=== PATIENT | male | born 1950 | race Caucasian/White ===

== ENCOUNTER → 2019-10-31 | Outpatient (CLI) | payer OTHER ==
[~2019-10-31] MED LIST: ALLO100T30 PO; ALLO300T PO; METO25TA35 PO; RIVA20TA PO; fenofibrate PO
[2019-10-31 16:57] LABS: BASOPHILS # (AUTO) 0.02 x10^3/uL (0-0.1); BASOPHILS % (AUTO) 0 % (0-1); EOSINOPHILS # (AUTO) 0.16 x10^3/uL (0-0.4); EOSINOPHILS % (AUTO) 2 % (1-7); LYMPHOCYTES # (AUTO) 2.73 x10^3/uL (1-3.4); LYMPHOCYTES % (AUTO) 36 % (22-44); MD NO; MEAN CORPUSCULAR HEMOGLOBIN 32.1 pg (27.5-34.5); MEAN CORPUSCULAR HGB CONC 33.1 g/dL (33.2-36.2); MONOCYTES % (AUTO) 8 % (2-9); NEUTROPHILS # (AUTO) 3.98 x10^3/uL (1.8-6.8); NEUTROPHILS % (AUTO) 53 % (42-75); PLATELET COUNT 123 x10^3/uL (130-400); RED BLOOD COUNT 5.31 x10^6/uL (4.38-5.82); RED CELL DISTRIBUTION WIDTH 14.8 % (9.4-14.8)
[2019-10-31 17:10] LABS: ALBUMIN 3.7 g/dL (3.4-5.0); ANION GAP 7 mmol/L (5-15); CALCIUM 9.4 mg/dL (8.5-10.1); CHLORIDE 109 mmol/L (98-107)
[2019-10-31 17:13] LABS: CREATININE 1.24 mg/dL (0.7-1.3)
[2019-10-31 17:14] LABS: ALANINE AMINOTRANSFERASE 60 U/L (12-78); ALKALINE PHOSPHATASE 78 U/L (45-117); BILIRUBIN,TOTAL 0.5 mg/dL (0.2-1.0); TOTAL PROTEIN 7.5 g/dL (6.4-8.2)
== END | disposition home or self-care (01) ==
LOC: STAR 12:40
PROVIDERS: ATTEND Internal Medicine Clinical Cardiac Electrophysiology
DX: Z01.818 Encounter for other preprocedural examination (principal); Z20.828 Contact with and (suspected) exposure to other viral communicable diseases; I48.92 Unspecified atrial flutter
CPT/HCPCS: 36415; 71046; 80053; 85025; 87635

== ENCOUNTER 2019-11-05 06:12 | Day surgery (SDC) | payer OTHER ==
[2019-10-31 13:17] VITALS: BP 151/115
[~2019-11-05] VITALS: Ht 180.3 cm; Wt 113.6 kg
[2019-11-05] MEDS ORDERED: SODIUM CHLORIDE 0.9% 1,000 ML IV SCH ×2 (06:24→06:30)
[2019-11-05] MEDS ORDERED: LIDOCAINE 1%, 20ML ONE (07:26)
[2019-11-05] MEDS ORDERED: FENTANYL PF 250 MCG/5ML ONE (07:38)
[2019-11-05] MEDS ORDERED: hydrALAzine 20 MG/ML, 1ML IV PRN (08:00)
[2019-11-05] MEDS ORDERED: MEPERIDINE/PF 25MG/0.5ML IVPush PRN (08:00)
[2019-11-05] MEDS ORDERED: ACETAMINOPHEN 325 MG TABLET PO PRN (08:00)
[2019-11-05] MEDS ORDERED: LABETALOL 5MG/ML, 20ML IV PRN (08:00)
[2019-11-05] MEDS ORDERED: FENTANYL PF 100 MCG/2ML IV PRN (08:00)
[2019-11-05] MEDS ORDERED: PROMETHAZINE 25 MG/ML, 1ML IVPush PRN (08:00)
[2019-11-05] MEDS ORDERED: ONDANSETRON 2MG/ML, 2ML IVPush PRN (08:00)
[2019-11-05] MEDS ORDERED: OXYcodone 5 MG/5 ML ORAL.SOL UDC PO PRN (08:00)
[2019-11-05] MEDS ORDERED: EPHEDRINE 50 MG/ML, 1ML IVPush PRN (08:00)
[2019-11-05] MEDS ORDERED: HYDROmorphone 1 MG/ML, 1ML INJ IVPush PRN (08:00)
[2019-11-05] MEDS ORDERED: SUGAMMADEX 200 MG/2 ML IVPush ONE (08:13)
[2019-11-05] MEDS ORDERED: DEXAMETHASONE 4 MG/ML, 1ML ONE (08:26)
[2019-11-05] MEDS ORDERED: SUCCINYLCHOLINE 20 MG/ML, 10ML ONE (08:26)
[2019-11-05] MEDS ORDERED: ONDANSETRON 2MG/ML, 2ML ONE (08:26)
[2019-11-05] MEDS ORDERED: PROPOFOL 10 MG/ML, 20ML ONE (08:26)
[2019-11-05] MEDS ORDERED: ROCURONIUM 10MG/ML,5ML ONE (08:26)
[2019-11-05] MEDS ORDERED: PHENYLEPHRINE 10 MG/ML ONE (09:01)
== END 2019-11-05 16:13 | disposition home or self-care (01) ==
LOC: CACL 06:12
PROVIDERS: ATTEND Internal Medicine Clinical Cardiac Electrophysiology
DX: I48.92 Unspecified atrial flutter (principal); I08.0 Rheumatic disorders of both mitral and aortic valves; I70.0 Atherosclerosis of aorta; I10 Essential (primary) hypertension; E78.5 Hyperlipidemia, unspecified; M10.9 Gout, unspecified; Z79.01 Long term (current) use of anticoagulants; Z79.899 Other long term (current) drug therapy
CPT/HCPCS: 93005; 93312; 93321; 93325; 93613; 93621; 93653; C1730; C1732; C1894; J0330; J1100; J2370; J2405; J2704; J3010

== ENCOUNTER → 2020-09-06 | Outpatient (CLI) | payer MEDICARE ==
[~2020-09-06] MED LIST changes: +AZIT250T PO; +CARV12.52 PO; +CARV6.2512 PO; +FENO150C4 PO; +WARF1POW PO
== END | disposition home or self-care (01) ==
LOC: CFH 10:23
PROVIDERS: ATTEND Nurse Practitioner Family
DX: G31.89 Other specified degenerative diseases of nervous system (principal); I61.0 Nontraumatic intracerebral hemorrhage in hemisphere, subcortical
CPT/HCPCS: 70450